=== PATIENT | female | born 1955 | race Caucasian/White ===

== ENCOUNTER 2023-01-05 10:59 | Inpatient (IN) | payer OTHER ==
[2023-01-05 11:52] LABS: BASO % 0.1 % (0-2.0); EOS % 0.1 % (0-4.5); HEMATOCRIT 38.6 % (32.4-45.2); HEMOGLOBIN 12.7 GM/dL (10.7-15.3); LYMPH % 11.5 % (8-40); MCH 29.3 pg (25.7-33.7); MCHC 32.9 g/dl (32.0-36.0); MEAN CELL VOLUME 89.3 fl (80-96); NEUT % 84.3 % (42.8-82.8); PLATELET COUNT 237 10^3/uL (134-434); RBC 4.32 M/mm3 (3.60-5.2); RDW 14.8 % (11.6-15.6); WHITE BLOOD COUNT 15.3 K/mm3 (4.0-10.0)
[2023-01-05 11:53] LABS: VENOUS BASE EXCESS -6.9 mmol/L (-2-2); VENOUS O2 SATURATION 97.4 % (70-80); VENOUS PCO2 57.9 mmHg (38-52)
[2023-01-05 11:54] LABS: VENOUS PH 7.194 (7.310-7.410)
[2023-01-05 11:59] LABS: INR 1.73 (0.83-1.09)
[2023-01-05 12:01] LABS: ACTIVATED PTT 32.8 SECONDS (25.2-36.5)
[2023-01-05 12:06] LABS: EPI CELLS 3 /uL (0-25.1); HYALINE CASTS 3 /uL (0-3.1); URINE APPEARANCE CLOUDY; URINE BACTERIA >9,000 /uL (0-1359); URINE BILIRUBIN NEGATIVE (NEGATIVE); URINE COLOR YELLOW; URINE GLUCOSE (UA) NEGATIVE (NEGATIVE); URINE KETONE TRACE (NEGATIVE); URINE LEUK ESTERASE 2+ (NEGATIVE); URINE NITRITE POSITIVE (NEGATIVE); URINE PROTEIN 1+ (NEGATIVE); URINE RBC 230 /uL (0-23.9); URINE UROBILINOGEN 0.2 mg/dL (0.2-1.0); URINE WBC 911 /uL (0-25.8)
[2023-01-05] MEDS ORDERED: CEFTRIAXONE 1,000 MG in DEXTROSE 5%-WATER - 50 ML IVPB ONE (12:19)
[2023-01-05] MEDS ORDERED: CEFTRIAXONE 1 GM/50 ML BAG ONE (12:23)
[2023-01-05 12:29] LABS: POTASSIUM 4.1 mmol/L (3.5-5.1)
[2023-01-05 12:31] LABS: ALBUMIN 3.8 g/dl (3.4-5.0); BLOOD UREA NITROGEN 17.6 mg/dL (7-18); CALCIUM 10.4 mg/dL (8.5-10.1); MAGNESIUM 2.2 mg/dL (1.8-2.4)
[2023-01-05 12:34] LABS: CREATININE 0.9 mg/dL (0.55-1.3)
[2023-01-05 12:36] LABS: BILIRUBIN,TOTAL 0.5 mg/dL (0.2-1); TOT PROT 7.5 g/dl (6.4-8.2)
[2023-01-05 12:40] LABS: LACTIC ACID 4.7 mmol/L (0.4-2.0)
[2023-01-05] MEDS ORDERED: levETIRAcetam 500 MG/5 ML INJECTION VIAL IVPB ONE ×2 (13:29→13:43)
[2023-01-05 14:20] LABS: VENOUS BASE EXCESS -0.5 mmol/L (-2-2); VENOUS O2 SATURATION 87.4 % (70-80); VENOUS PCO2 53.1 mmHg (38-52); VENOUS PH 7.314 (7.310-7.410)
[2023-01-05] MEDS ORDERED: ALBUTEROL SO4 HFA INHALER IH PRN (14:23)
[2023-01-05] MEDS ORDERED: AZTREONAM 1 GM in DEXTROSE 5%-WATER - 50 ML IVPB SCH (15:00)
[2023-01-05] MEDS ORDERED: AZTREONAM 1 GM VIAL (RESTRICTED TO ID) ONE ×2 (16:09→18:57)
[2023-01-05] MEDS: DEXTROSE 5%-LACTATED RINGERS 1,000 ML IV SCH (16:19)
[2023-01-05] MEDS: KETOROLAC TROMETHAMINE 15 MG/ML VIAL IVPUSH PRN (16:43)
[2023-01-05] MEDS: ZONISAMIDE 100 MG CAPSULE PO ONE ×2 (18:52→18:54)
[2023-01-05] MEDS: AZTREONAM 1 GM in DEXTROSE 5%-WATER - 50 ML IVPB SCH (19:24)
[2023-01-05] MEDS ORDERED: HALOPERIDOL LACTATE 5 MG/ML IM ONE (20:01)
[2023-01-05] MEDS ORDERED: HALOPERIDOL LACTATE 5 MG/ML ONE (20:19)
[2023-01-05] MEDS ORDERED: LORazepam 2 MG/ML SDV VIAL IM ONE (20:38)
[2023-01-05] MEDS: ATORVASTATIN CA 10 MG TABLET (FP) PO SCH (22:37)
[2023-01-05] MEDS: BUDESONIDE/FORMOTEROL FUMARATE 80-4.5 MCG (10.3 GM INHALER) IH SCH (22:37)
[2023-01-05] MEDS: FAMOTIDINE 20 MG TABLET PO SCH (22:37)
[2023-01-05] MEDS: QUEtiapine FUMARATE 200 MG TABLET PO SCH (22:37)
[2023-01-05] MEDS: MONTELUKAST NA 10 MG TABLET PO SCH (22:38)
[2023-01-06] MEDS ORDERED: KETOROLAC TROMETHAMINE 15 MG/ML VIAL ONE ×2 (01:50→08:22)
[2023-01-06] MEDS ORDERED: AZTREONAM 1 GM VIAL (RESTRICTED TO ID) ONE ×2 (01:56→09:08)
[2023-01-06] MEDS: AZTREONAM 1 GM in DEXTROSE 5%-WATER - 50 ML IVPB SCH ×3 (02:14→17:40)
[2023-01-06] MEDS: KETOROLAC TROMETHAMINE 15 MG/ML VIAL IVPUSH PRN ×4 (02:14→22:19)
[2023-01-06] MEDS ORDERED: LEVOTHYROXINE NA 25 MCG TABLET (FP) ONE (07:46)
[2023-01-06] MEDS: LEVOTHYROXINE NA 25 MCG TABLET (FP) PO SCH (07:58)
[2023-01-06 08:17] LABS: BASO % 0.5 % (0-2.0); EOS % 0.8 % (0-4.5); HEMOGLOBIN 12.9 GM/dL (10.7-15.3); LYMPH % 13.2 % (8-40); MCH 29.2 pg (25.7-33.7); MCHC 32.2 g/dl (32.0-36.0); MEAN CELL VOLUME 90.7 fl (80-96); MEAN PLT VOLUME 9.2 fl (7.5-11.1); NEUT % 78.5 % (42.8-82.8); PLATELET COUNT 251 10^3/uL (134-434); RBC 4.41 M/mm3 (3.60-5.2); RDW 14.5 % (11.6-15.6); WHITE BLOOD COUNT 7.7 K/mm3 (4.0-10.0)
[2023-01-06 08:45] LABS: POTASSIUM 3.4 mmol/L (3.5-5.1)
[2023-01-06 08:47] LABS: BLOOD UREA NITROGEN 17.7 mg/dL (7-18)
[2023-01-06 08:51] LABS: CREATININE 0.8 mg/dL (0.55-1.3)
[2023-01-06] MEDS: LACTOBACILLUS ACIDOPHILUS 1 TABLET PO SCH (10:21)
[2023-01-06] MEDS: FOLIC ACID 1 MG TABLET (FP) PO SCH (10:22)
[2023-01-06] MEDS: SOLIFENACIN SUCCINATE 5 MG TAB PO SCH (10:23)
[2023-01-06] MEDS: MULTIVITAMINS (DAILY MVI) TABLET (FP) PO SCH (10:23)
[2023-01-06] MEDS: PANTOPRAZOLE 40 MG TABLET PO SCH (10:23)
[2023-01-06] MEDS: ZONISAMIDE 100 MG CAPSULE PO SCH (10:23)
[2023-01-06] MEDS: BUDESONIDE/FORMOTEROL FUMARATE 80-4.5 MCG (10.3 GM INHALER) IH SCH ×2 (11:29→22:19)
[2023-01-06] MEDS: TIOTROPIUM BROMIDE 2.5 MCG (SPIRIVA) RESPIMAT INHALER IH SCH (11:30)
[2023-01-06] MEDS ORDERED: ACETAMINOPHEN 1000 MG/100 ML BAG IVPB PRN (11:57)
[2023-01-06 12:54] VITALS: BMI 31.6
[2023-01-06] MEDS: DEXTROSE 5%-LACTATED RINGERS 1,000 ML IV SCH (15:15)
[2023-01-06] MEDS: RIVAROXABAN 20 MG TABLET PO SCH (17:39)
[2023-01-06] MEDS: QUEtiapine FUMARATE 200 MG TABLET PO SCH (22:18)
[2023-01-06] MEDS: ATORVASTATIN CA 10 MG TABLET (FP) PO SCH (22:18)
[2023-01-06] MEDS: FAMOTIDINE 20 MG TABLET PO SCH (22:18)
[2023-01-06] MEDS: MONTELUKAST NA 10 MG TABLET PO SCH (22:18)
[2023-01-07] MEDS: AZTREONAM 1 GM in DEXTROSE 5%-WATER - 50 ML IVPB SCH ×3 (03:08→17:34)
[2023-01-07] MEDS: LEVOTHYROXINE NA 25 MCG TABLET (FP) PO SCH (06:52)
[2023-01-07 09:41] LABS: BASO % 0.6 % (0-2.0); EOS % 3.3 % (0-4.5); HEMOGLOBIN 11.5 GM/dL (10.7-15.3); LYMPH % 18.9 % (8-40); MCH 29.4 pg (25.7-33.7); MCHC 32.7 g/dl (32.0-36.0); MEAN CELL VOLUME 89.9 fl (80-96); MONO % 8.3 % (3.8-10.2); NEUT % 68.9 % (42.8-82.8); PLATELET COUNT 209 10^3/uL (134-434); RDW 14.5 % (11.6-15.6); WHITE BLOOD COUNT 6.4 K/mm3 (4.0-10.0)
[2023-01-07] MEDS: SOLIFENACIN SUCCINATE 5 MG TAB PO SCH (10:40)
[2023-01-07] MEDS: LACTOBACILLUS ACIDOPHILUS 1 TABLET PO SCH (10:40)
[2023-01-07] MEDS: FOLIC ACID 1 MG TABLET (FP) PO SCH (10:40)
[2023-01-07] MEDS: MULTIVITAMINS (DAILY MVI) TABLET (FP) PO SCH (10:40)
[2023-01-07] MEDS: ZONISAMIDE 100 MG CAPSULE PO SCH (10:40)
[2023-01-07] MEDS: PANTOPRAZOLE 40 MG TABLET PO SCH (10:40)
[2023-01-07] MEDS: TIOTROPIUM BROMIDE 2.5 MCG (SPIRIVA) RESPIMAT INHALER IH SCH (10:42)
[2023-01-07] MEDS: BUDESONIDE/FORMOTEROL FUMARATE 80-4.5 MCG (10.3 GM INHALER) IH SCH ×2 (10:46→22:07)
[2023-01-07] MEDS: LACTATED RINGERS SOLUTION 1,000 ML/1,000 ML INFUS.BAG IV SCH ×2 (14:41→17:27)
[2023-01-07] MEDS: RIVAROXABAN 20 MG TABLET PO SCH (17:34)
[2023-01-07] MEDS: DEXTROSE 5%-LACTATED RINGERS 1,000 ML IV SCH (22:05)
[2023-01-07] MEDS: MONTELUKAST NA 10 MG TABLET PO SCH (22:05)
[2023-01-07] MEDS: FAMOTIDINE 20 MG TABLET PO SCH (22:05)
[2023-01-07] MEDS: ATORVASTATIN CA 10 MG TABLET (FP) PO SCH (22:05)
[2023-01-07] MEDS: QUEtiapine FUMARATE 200 MG TABLET PO SCH (22:05)
[2023-01-07] MEDS: KETOROLAC TROMETHAMINE 15 MG/ML VIAL IVPUSH PRN (23:13)
[2023-01-08] MEDS: AZTREONAM 1 GM in DEXTROSE 5%-WATER - 50 ML IVPB SCH ×2 (01:20→09:23)
[2023-01-08] MEDS: LEVOTHYROXINE NA 25 MCG TABLET (FP) PO SCH (06:22)
[2023-01-08] MEDS ORDERED: ACETAMINOPHEN 325 MG TABLET (FP) PO PRN (08:36)
[2023-01-08] MEDS: PANTOPRAZOLE 40 MG TABLET PO SCH (09:24)
[2023-01-08] MEDS: FOLIC ACID 1 MG TABLET (FP) PO SCH (09:24)
[2023-01-08] MEDS: SOLIFENACIN SUCCINATE 5 MG TAB PO SCH (09:24)
[2023-01-08] MEDS: LACTOBACILLUS ACIDOPHILUS 1 TABLET PO SCH (09:24)
[2023-01-08] MEDS: ZONISAMIDE 100 MG CAPSULE PO SCH (09:25)
[2023-01-08] MEDS: BUDESONIDE/FORMOTEROL FUMARATE 80-4.5 MCG (10.3 GM INHALER) IH SCH (09:26)
[2023-01-08] MEDS: TIOTROPIUM BROMIDE 2.5 MCG (SPIRIVA) RESPIMAT INHALER IH SCH (09:26)
[2023-01-08] MEDS: MULTIVITAMINS (DAILY MVI) TABLET (FP) PO SCH (09:27)
[2023-01-08] MEDS: GABAPENTIN 100 MG CAPSULE PO SCH ×2 (10:15→13:28)
[2023-01-08 13:38] VITALS: BP 131/53; PULSE 65; RESP 18; TEMP 98.2
== END 2023-01-08 14:13 | disposition home or self-care (01) | DRG 101 ==
LOC: JER 10:59 → JERBED 14:09 → J8W 01-06 12:21
PROVIDERS: ADMIT Internal Medicine; ATTEND Nurse Practitioner Acute Care
DX: G40.909 Epilepsy, unspecified, not intractable, without status epilepticus (principal); N39.0 Urinary tract infection, site not specified; E87.20 Acidosis, unspecified; I48.91 Unspecified atrial fibrillation; Z79.01 Long term (current) use of anticoagulants; E03.9 Hypothyroidism, unspecified; J45.909 Unspecified asthma, uncomplicated; D72.829 Elevated white blood cell count, unspecified; E86.1 Hypovolemia
CPT/HCPCS: 0241U-QW; 36415; 70450-TC; 71045-TC-FY; 80048; 80053; 80203; 81003; 82550; 82553; 82803; 82962; 83605; 83735; 84439; 84443; 84484; 85025; 85610; 85730; 87086; 87186; 87635; 93005; 93010; 93971-TC; 95816; 99285-25